=== PATIENT | male | born 1950 | race Caucasian/White ===

== ENCOUNTER 2016-10-29 01:24 | Inpatient (IN) | payer MEDICARE, OTHER ==
[2016-10-29] MEDS ORDERED: ASPIRIN 81 MG CHEW PO STA (01:39)
[2016-10-29] MEDS ORDERED: NITROGLYCERIN OINT 1 INCH/GM PACKET TOPICAL STA (01:39)
--- NOTE | 2016-10-29 01:43 | ED ---
General Adult HPI - General Stated complaint: FAtigue/Chest Pain Time Seen by Provider: 10/29/16 01:25 Source: RN notes reviewed - History of Present Illness Initial comments: This is a 66-year-old male with a past medical history significant for bypass surgery as well as multiple stents. Patient comes into the emergency department today because yesterday morning he was having some significant chest pain with shortness of breath diaphoresis and nausea. Patient states at that time he thought he was going to pass out. Patient took a nitroglycerin and some aspirin and the pain subsided shortly thereafter. Patient states all day long he felt fine this morning at 12:30 woke up with some chest pain and shortness of breath again. Patient states it is a pressure sensation in the left side of his chest since similar to the symptoms he had when he had his bypass surgery. Patient states currently he is feeling better but it's still slightly there at his chest. Patient denies any recent fever chills or cough. Patient denies any abdominal pain. Patient denies any vomiting or diarrhea. Patient denies any headache patient denies any numbness or weakness. - Related Data Allergies Allergy/AdvReac Type Severity Reaction Status Date / Time No Known Allergies Allergy Verified 10/29/16 01:41 Review of Systems ROS Statement: Those systems with pertinent positive or pertinent negative responses have been documented in the HPI. ROS Other: All systems not noted in ROS Statement are negative. General Exam - General Exam Comments Initial Comments: GENERAL: Patient is well-developed and well-nourished. Patient is nontoxic and well- hydrated and is in mild distress. ENT: Neck is soft and supple. No significant lymphadenopathy is noted. Oropharynx is clear. Moist mucous membranes. Neck has full range of motion without eliciting any pain. EYES: The sclera were anicteric and conjunctiva were pink and moist. Extraocular movements were intact and pupils were equal round and reactive to light. Eyelids were unremarkable. PULMONARY: Unlabored respirations. Good breath sounds bilaterally. No audible rales rhonchi or wheezing was noted. CARDIOVASCULAR: There is a regular rate and rhythm without any murmurs gallops or rubs. ABDOMEN: Soft and nontender with normal bowel sounds. No palpable organomegaly was noted. There is no palpable pulsatile mass. SKIN: Skin is clear with no lesions or rashes and otherwise unremarkable. NEUROLOGIC: Patient is alert and oriented x3. Cranial nerves II through XII are grossly intact. Motor and sensory are also intact. Normal speech, volume and content. Symmetrical smile. MUSCULOSKELETAL: Normal extremities with adequate strength and full range of motion. No lower extremity swelling or edema. No calf tenderness. LYMPHATICS: No significant lymphadenopathy is noted PSYCHIATRIC: Normal psychiatric evaluation. Normal interpersonal interactions appears functionally intact in deals appropriately with others. No signs of depression. No signs of anxiety. Course Vital Signs 10/29/16 10/29/16 01:35 03:02 Temperature 97.8 F Pulse Rate 80 73 Respiratory 18 18 Rate Blood Pressure 132/71 112/68 O2 Sat by Pulse 99 96 Oximetry Medical Decision Making - Medical Decision Making EKG shows normal sinus rhythm at 72 bpm TN interval is 202 QRS is 104 QT interval 428 QTC is 468. Patient's EKG shows Q waves in leads 3 and aVF there is no ST segment elevation. Patient has significant cardiac history this along with his clinical symptoms I diagnosed patient with unstable angina I started the patient on heparin I spoke with Dr. Moses agreed to admit the patient admitted the patient I consult cardiology I continued heparin and aspirin and Nitropaste on the floor. Chest x-ray shows no acute abnormality. - Lab Data Result diagrams: 10/29/16 01:50 10/29/16 01:50 Lab Results 10/29/16 10/29/16 10/29/16 Range/Units 01:50 01:50 01:50 WBC 11.9 H (3.8-10.6) k/uL RBC 4.87 (4.30-5.90) m/uL Hgb 13.9 (13.0-17.5) gm/dL Hct 41.5 (39.0-53.0) % MCV 85.2 (80.0-100.0) fL MCH 28.5 (25.0-35.0) pg MCHC 33.4 (31.0-37.0) g/dL RDW 13.3 (11.5-15.5) % Plt Count 209 (150-450) k/uL Neutrophils % 66 % Lymphocytes % 24 % Monocytes % 6 % Eosinophils % 2 % Basophils % 0 % Neutrophils # 7.8 H (1.3-7.7) k/uL Lymphocytes # 2.9 (1.0-4.8) k/uL Monocytes # 0.7 (0-1.0) k/uL Eosinophils # 0.2 (0-0.7) k/uL Basophils # 0.1 (0-0.2) k/uL PT (9.0-12.0) sec INR (<1.1) APTT (22.0-30.0) sec Sodium 142 (137-145) mmol/L Potassium 4.5 (3.5-5.1) mmol/L Chloride 103 (98-107) mmol/L Carbon Dioxide 25 (22-30) mmol/L Anion Gap 14 mmol/L BUN 25 H (9-20) mg/dL Creatinine 0.88 (0.66-1.25) mg/dL Est GFR (MDRD) Af Amer >60 (>60 ml/min/1.73 sqM) Est GFR (MDRD) Non-Af >60 (>60 ml/min/1.73 sqM) Glucose 97 (74-99) mg/dL Calcium 9.3 (8.4-10.2) mg/dL Magnesium 1.7 (1.6-2.3) mg/dL Total Bilirubin 0.6 (0.2-1.3) mg/dL AST 22 (17-59) U/L ALT 30 (21-72) U/L Alkaline Phosphatase 73 (38-126) U/L Total Creatine Kinase 137 (55-170) U/L CK-MB (CK-2) 0.7 (0.0-2.4) ng/mL CK-MB (CK-2) Rel Index 0.5 Troponin I <0.012 (0.000-0.034) ng/mL Total Protein 6.9 (6.3-8.2) g/dL Albumin 4.2 (3.5-5.0) g/dL 10/29/16 Range/Units 01:50 WBC (3.8-10.6) k/uL RBC (4.30-5.90) m/uL Hgb (13.0-17.5) gm/dL Hct (39.0-53.0) % MCV (80.0-100.0) fL MCH (25.0-35.0) pg MCHC (31.0-37.0) g/dL RDW (11.5-15.5) % Plt Count (150-450) k/uL Neutrophils % % Lymphocytes % % Monocytes % % Eosinophils % % Basophils % % Neutrophils # (1.3-7.7) k/uL Lymphocytes # (1.0-4.8) k/uL Monocytes # (0-1.0) k/uL Eosinophils # (0-0.7) k/uL Basophils # (0-0.2) k/uL PT 10.9 (9.0-12.0) sec INR 1.1 (<1.1) APTT 25.0 (22.0-30.0) sec Sodium (137-145) mmol/L Potassium (3.5-5.1) mmol/L Chloride (98-107) mmol/L Carbon Dioxide (22-30) mmol/L Anion Gap mmol/L BUN (9-20) mg/dL Creatinine (0.66-1.25) mg/dL Est GFR (MDRD) Af Amer (>60 ml/min/1.73 sqM) Est GFR (MDRD) Non-Af (>60 ml/min/1.73 sqM) Glucose (74-99) mg/dL Calcium (8.4-10.2) mg/dL Magnesium (1.6-2.3) mg/dL Total Bilirubin (0.2-1.3) mg/dL AST (17-59) U/L ALT (21-72) U/L Alkaline Phosphatase (38-126) U/L Total Creatine Kinase (55-170) U/L CK-MB (CK-2) (0.0-2.4) ng/mL CK-MB (CK-2) Rel Index Troponin I (0.000-0.034) ng/mL Total Protein (6.3-8.2) g/dL Albumin (3.5-5.0) g/dL Critical Care Time Critical Care Time: Yes Total Critical Care Time: 35 Disposition Clinical Impression: Unstable angina pectoris Disposition: ADMITTED IP TO THIS HOSP Referrals: [facility] [REFERRING] - 1-2 days Time of Disposition: 03:03
[2016-10-29 02:00] LABS: Basophils # (A) 0.1 k/uL (0-0.2); Basophils % (A) 0 %; CH 28.7; CHCM 33.8; Eosinophils # (A) 0.2 k/uL (0-0.7); Eosinophils % (A) 2 %; HCT 41.5 % (39.0-53.0); HDW 2.75; HGB 13.9 gm/dL (13.0-17.5); Luc # (Auto) 0.25; Luc % (Auto) 2; Lymphocytes # (A) 2.9 k/uL (1.0-4.8); Lymphocytes % (A) 24 %; MCH 28.5 pg (25.0-35.0); MCHC 33.4 g/dL (31.0-37.0); MCV 85.2 fL (80.0-100.0); Mean Platelet Volume 7.1; Monocytes # (A) 0.7 k/uL (0-1.0); Monocytes % (A) 6 %; Neutrophils # (A) 7.8 k/uL (1.3-7.7); Neutrophils % (A) 66 %; RBC 4.87 m/uL (4.30-5.90); RDW 13.3 % (11.5-15.5); WBC 11.9 k/uL (3.8-10.6)
[2016-10-29 02:05] LABS: INR 1.1 (<1.1); Prothrombin Time 10.9 sec (9.0-12.0)
[2016-10-29 02:08] LABS: ALT 30 U/L (21-72); AST 22 U/L (17-59); Alkaline Phosphatase 73 U/L (38-126); Anion Gap 14 mmol/L; Blood Urea Nitrogen 25 mg/dL (9-20); Calcium 9.3 mg/dL (8.4-10.2); Carbon Dioxide 25 mmol/L (22-30); Chloride 103 mmol/L (98-107); Glucose 97 mg/dL (74-99); Magnesium 1.7 mg/dL (1.6-2.3); Non-African American GFR(MDRD) >60 (>60 ml/min/1.73 sqM); Potassium 4.5 mmol/L (3.5-5.1); Sodium 142 mmol/L (137-145); Total Bilirubin 0.6 mg/dL (0.2-1.3); Total Protein 6.9 g/dL (6.3-8.2)
--- NOTE | 2016-10-29 02:10 | XR ---
EXAM: XR Chest, 2 Views CLINICAL HISTORY: Reason: Chest Pain TECHNIQUE: Frontal and lateral views of the chest. COMPARISON: No relevant prior studies available. FINDINGS: Lungs: Low lung volumes. No consolidation. Pleural space: Unremarkable. No pleural effusions. No pneumothorax. Heart: Unremarkable. No cardiomegaly. Mediastinum: Sternotomy wires and mediastinal clips. Bones/joints: Unremarkable. IMPRESSION: No acute cardiopulmonary process.
[2016-10-29 02:26] LABS: Creatine Kinase 137 U/L (55-170)
[2016-10-29 02:39] LABS: Creatine Kinase MB 0.7 ng/mL (0.0-2.4); Troponin I <0.012 ng/mL (0.000-0.034)
[2016-10-29] MEDS ORDERED: HEPARIN SODIUM,PORCINE 5,000 UNIT/ML 1 ML VIAL IV ONE (03:02)
[2016-10-29] MEDS: HEPARIN SODIUM,PORCINE/D5W PMX 25,000 UNIT in DEXTROSE/WATER 1 500ML.BAG IV SCH (03:20)
[2016-10-29] MEDS ORDERED: NITROGLYCERIN SL TABS 0.4 MG TAB SUBLINGUAL PRN ×2 (04:52→11:21)
[2016-10-29 05:52] VITALS: BMI 28.3
[2016-10-29 06:23] LABS: Glucose,Whole Blood 123 mg/dL (75-99)
[2016-10-29] MEDS: NITROGLYCERIN OINT 1 INCH/GM PACKET TOPICAL SCH ×4 (06:24→23:05)
--- NOTE | 2016-10-29 09:37 | P.CRDCN ---
<Emilie Gerber E - Last Filed: 10/29/16 09:14> History of Present Illness Consult date: 10/29/16 Requesting physician: Peter Cooper Consult reason: chest pain Chief complaint: Chest pain History of present illness: This is a 66-year-old gentleman with known history of coronary artery disease and prior myocardial infarctions, prior bypass surgery and multiple stent placements, diabetes, hypertension, hyperlipidemia, he follows with Dr. Saldivar in the office. He presents to the hospital with symptoms of chest discomfort. According to the patient he was helping a one of his grandchildren get ready for school yesterday morning, he was tying his shoelaces and noticed a discomfort in the left chest area, he states he became nauseated and diaphoretic felt like he may pass out. He took a sublingual nitroglycerin with relief of the symptoms. Again at around 12:30 in the morning the patient states he awoke with discomfort in the chest and just did not feel right, he again took a sublingual nitroglycerin as well as an aspirin. Patient came to the emergency room for further evaluation. Overall the patient states he's been doing fairly well, he has not had any symptoms of angina for quite some time. He also states that he recently underwent a stress test in the office which was reported to be normal. At the time of my examination this morning patient is currently chest pain-free. Blood pressure on arrival here 132/70 with a heart rate in the 80s. White blood cell count 11.9, hemoglobin 13.9, potassium 4.5, BUN 25, creatinine 0.8. Initial troponin 0.012. Magnesium level I.7. EKG shows normal sinus rhythm with lateral ST depression and inferior Q waves. Chest x-ray does not reveal any acute cardiopulmonary process. Past Medical History Past Medical History: Coronary Artery Disease (CAD), Chest Pain / Angina, Diabetes Mellitus, Hypertension, Myocardial Infarction (MS) Last Myocardial Infarction Date:: 2013 History of Any Multi-Drug Resistant Organisms: None Reported Past Surgical History: Coronary Bypass/CABG, Heart Catheterization With Stent Past Anesthesia/Blood Transfusion Reactions: No Reported Reaction Date of Last Stent Placement:: 2013 Past Psychological History: No Psychological Hx Reported Smoking Status: Former smoker Past Alcohol Use History: None Reported Past Drug Use History: None Reported - Past Family History Father Family Medical History: Congestive Heart Failure (CHF) Mother Family Medical History: Congestive Heart Failure (CHF), Myocardial Infarction ( MS) Brother(s) Additional Family Medical History / Comment(s): CABG Medications and Allergies Home Medications Medication Instructions Recorded Confirmed Type Aspirin 325 mg PO DAILY 10/29/16 10/29/16 History Atenolol 25 mg PO DAILY 10/29/16 10/29/16 History Atorvastatin [Lipitor] 40 mg PO HS 10/29/16 10/29/16 History Clopidogrel [Plavix] 75 mg PO DAILY 10/29/16 10/29/16 History Lisinopril [Prinivil] 10 mg PO DAILY 10/29/16 10/29/16 History glipiZIDE [Glipizide] 5 mg PO HS 10/29/16 10/29/16 History metFORMIN HCL [Metformin HCl] 1,000 mg PO BID 10/29/16 10/29/16 History Allergies Allergy/AdvReac Type Severity Reaction Status Date / Time No Known Allergies Allergy Verified 10/29/16 07:31 Physical Exam Vitals: Vital Signs Temp Pulse Pulse Resp BP BP Pulse Ox 10/29/16 07:44 96.1 F L 75 18 111/67 95 10/29/16 05:15 97.7 F 81 18 107/64 96 10/29/16 04:53 97 10/29/16 04:00 80 18 103/65 96 10/29/16 03:02 73 18 112/68 96 10/29/16 01:35 97.8 F 80 18 132/71 99 Intake and Output 10/28/16 10/29/16 10/29/16 22:59 06:59 14:59 Other: # Voids 1 Weight 89.5 kg PHYSICAL EXAMINATION: HEENT: Head is atraumatic, normocephalic. Pupils equal, round. Neck is supple. There is no elevated jugular venous pressure. HEART EXAMINATION: Heart S1, S2 normal. No murmur or gallop heard. CHEST EXAMINATION: Lungs are clear to auscultation and precussion. No chest wall tenderness is noted on palpation or with deep breathing. ABDOMEN: Soft, nontender. Bowel sounds are heard. No organomegaly noted. EXTREMITIES: 2+ peripheral pulses with no evidence of peripheral edema and no calf tenderness noted. NEUROLOGIC patient is awake, alert and oriented -3. . Results 10/29/16 01:50 10/29/16 01:50 Cardiac Enzymes 10/29/16 10/29/16 Range/Units 01:50 01:50 AST 22 (17-59) U/L CK-MB (CK-2) 0.7 (0.0-2.4) ng/mL Troponin I <0.012 (0.000-0.034) ng/mL Coagulation 10/29/16 Range/Units 01:50 PT 10.9 (9.0-12.0) sec APTT 25.0 (22.0-30.0) sec CBC 10/29/16 Range/Units 01:50 WBC 11.9 H (3.8-10.6) k/uL RBC 4.87 (4.30-5.90) m/uL Hgb 13.9 (13.0-17.5) gm/dL Hct 41.5 (39.0-53.0) % Plt Count 209 (150-450) k/uL Comprehensive Metabolic Panel 10/29/16 Range/Units 01:50 Sodium 142 (137-145) mmol/L Potassium 4.5 (3.5-5.1) mmol/L Chloride 103 (98-107) mmol/L Carbon Dioxide 25 (22-30) mmol/L BUN 25 H (9-20) mg/dL Creatinine 0.88 (0.66-1.25) mg/dL Glucose 97 (74-99) mg/dL Calcium 9.3 (8.4-10.2) mg/dL AST 22 (17-59) U/L ALT 30 (21-72) U/L Alkaline Phosphatase 73 (38-126) U/L Total Protein 6.9 (6.3-8.2) g/dL Albumin 4.2 (3.5-5.0) g/dL Current Medications Generic Name Dose Route Start Last Admin Trade Name Freq PRN Reason Stop Dose Admin Aspirin 325 mg 10/30/16 09:00 Aspirin PO DAILY LA Heparin Sodium/Dextrose 25,000 500 mls @ 20.09 mls/hr 10/29/16 03:15 03:20 unit/ IV Solution IV 11.24 units/kg/hr .Q24H LA 20 mls/hr Protocol Administration 11.3 UNITS/KG/HR Nitroglycerin 1 inch 10/29/16 06:00 10/29/16 06:24 Nitro-Bid Oint TOPICAL 1 inch Q6HR LA Administration Nitroglycerin 0.4 mg 10/29/16 04:52 Nitrostat SUBLINGUAL Q5M PRN Chest Pain Intake and Output 10/28/16 10/29/16 10/29/16 22:59 06:59 14:59 Other: # Voids 1 Weight 89.5 kg 10/29/16 01:50 10/29/16 01:50 EKG Interpretations (text) EKG shows normal sinus rhythm with inferior Q waves and ST depression in 1 and aVL. Assessment and Plan Plan: Assessment and plan #1 chest pain, initial troponin negative. EKG shows a normal sinus rhythm with inferior Q waves and lateral ST depression. #2 known history of coronary artery disease with prior myocardial infarctions, bypass surgery and multiple stent placements. #3 ischemic cardiomyopathy with documented ejection fraction of 35% #4 diabetes #5 hyperlipidemia #6 hypertension Plan We will repeat EKG this morning. Obtain echocardiogram with Doppler study. We will also get the report of recent stress test performed in the office. Continue Plavix, heparin drip, lisinopril, and Nitropaste. Decrease aspirin to 81 mg daily. Discontinue atenolol and initiate Coreg. Obtained to further troponins. Further recommendations to follow. DNP note has been reviewed, I agree with a documented findings and plan of care. Patient was seen and examined. <Bartolo Gage - Last Filed: 10/29/16 11:21> Physical Exam Vitals: Vital Signs Temp Pulse Pulse Resp BP BP Pulse Ox 10/29/16 11:09 96.8 F L 73 18 113/67 96 10/29/16 07:44 96.1 F L 75 18 111/67 95 10/29/16 05:15 97.7 F 81 18 107/64 96 10/29/16 04:53 97 10/29/16 04:00 80 18 103/65 96 10/29/16 03:02 73 18 112/68 96 10/29/16 01:35 97.8 F 80 18 132/71 99 Intake and Output 10/28/16 10/29/16 10/29/16 22:59 06:59 14:59 Intake Total 141.667 Balance 141.667 Intake: Intake, IV Titration 141.667 Amount Heparin Sodium,Porcine/ 141.667 D5w Pmx 25,000 unit In Dextrose/Water 1 500ml. bag @ 11.3 UNITS/KG/HR 20 .09 mls/hr IV .Q24H [facility] Rx#:[id number] Other: # Voids 1 2 Weight 89.5 kg Results 10/29/16 01:50 10/29/16 01:50 Cardiac Enzymes 10/29/16 10/29/16 10/29/16 Range/Units 01:50 01:50 08:01 AST 22 (17-59) U/L CK-MB (CK-2) 0.7 0.8 (0.0-2.4) ng/mL Troponin I <0.012 <0.012 (0.000-0.034) ng/mL Coagulation 10/29/16 10/29/16 Range/Units 01:50 09:21 PT 10.9 (9.0-12.0) sec APTT 25.0 35.9 H (22.0-30.0) sec CBC 10/29/16 Range/Units 01:50 WBC 11.9 H (3.8-10.6) k/uL RBC 4.87 (4.30-5.90) m/uL Hgb 13.9 (13.0-17.5) gm/dL Hct 41.5 (39.0-53.0) % Plt Count 209 (150-450) k/uL Comprehensive Metabolic Panel 10/29/16 Range/Units 01:50 Sodium 142 (137-145) mmol/L Potassium 4.5 (3.5-5.1) mmol/L Chloride 103 (98-107) mmol/L Carbon Dioxide 25 (22-30) mmol/L BUN 25 H (9-20) mg/dL Creatinine 0.88 (0.66-1.25) mg/dL Glucose 97 (74-99) mg/dL Calcium 9.3 (8.4-10.2) mg/dL AST 22 (17-59) U/L ALT 30 (21-72) U/L Alkaline Phosphatase 73 (38-126) U/L Total Protein 6.9 (6.3-8.2) g/dL Albumin 4.2 (3.5-5.0) g/dL Current Medications Generic Name Dose Route Start Last Admin Trade Name Freq PRN Reason Stop Dose Admin Aspirin 81 mg 10/30/16 09:00 Aspirin PO DAILY [facility] Atorvastatin Calcium 40 mg 10/29/16 21:00 Lipitor PO HS [facility] Carvedilol 3.125 mg 10/29/16 17:30 Coreg PO BID-W/MEALS [facility] Clopidogrel Bisulfate 75 mg 10/30/16 09:00 Plavix PO DAILY [facility] Glipizide 5 mg 10/29/16 21:00 Glucotrol PO HS [facility] Heparin Sodium (Porcine) 0 unit 10/29/16 10:16 10/29/16 10:24 Heparin IV 4,000 unit PER PROTOCOL PRN Administration Low PTT Protocol Heparin Sodium/Dextrose 25,000 500 mls @ 20.09 mls/hr 10/29/16 03:15 10:25 unit/ IV Solution IV 14.36 units/kg/hr .Q24H LA 25.53 mls/hr Protocol Titration 11.3 UNITS/KG/HR Lisinopril 10 mg 10/30/16 09:00 Zestril PO DAILY [facility] Metformin HCl 1,000 mg 10/29/16 21:00 Glucophage PO BID [facility] Nitroglycerin 1 inch 10/29/16 06:00 10/29/16 11:08 Nitro-Bid Oint TOPICAL 1 inch Q6HR [facility] Administration Nitroglycerin 0.4 mg 10/29/16 04:52 Nitrostat SUBLINGUAL Q5M PRN Chest Pain Intake and Output 10/28/16 10/29/16 10/29/16 22:59 06:59 14:59 Intake Total 141.667 Balance 141.667 Intake: Intake, IV Titration 141.667 Amount Heparin Sodium,Porcine/ 141.667 D5w Pmx 25,000 unit In Dextrose/Water 1 500ml. bag @ 11.3 UNITS/KG/HR 20 .09 mls/hr IV .Q24H [facility] Rx#:[id number] Other: # Voids 1 2 Weight 89.5 kg 10/29/16 01:50 10/29/16 01:50
[2016-10-29 10:11] LABS: Creatine Kinase 132 U/L (55-170)
[2016-10-29] MEDS ORDERED: HEPARIN SODIUM,PORCINE 5,000 UNIT/ML 1 ML VIAL IV PRN (10:16)
[2016-10-29 10:23] LABS: Creatine Kinase MB 0.8 ng/mL (0.0-2.4); Troponin I <0.012 ng/mL (0.000-0.034)
[2016-10-29] MEDS ORDERED: SODIUM CHLORIDE 0.9% 1,000 ML in EMPTY BAG 1 BAG IV ONE (11:21)
[2016-10-29] MEDS ORDERED: ALPRAZolam 0.25 MG TAB PO PRN (11:21)
[2016-10-29] MEDS ORDERED: ALPRAZolam 0.5 MG TAB PO PRN (11:21)
[2016-10-29 11:30] LABS: Glucose,Whole Blood 123 mg/dL (75-99)
[2016-10-29 13:33] LABS: Anion Gap 13 mmol/L; Blood Urea Nitrogen 23 mg/dL (9-20); Calcium 9.2 mg/dL (8.4-10.2); Carbon Dioxide 24 mmol/L (22-30); Chloride 103 mmol/L (98-107); Glucose 121 mg/dL (74-99); Non-African American GFR(MDRD) >60 (>60 ml/min/1.73 sqM); Potassium 4.4 mmol/L (3.5-5.1); Sodium 140 mmol/L (137-145)
[2016-10-29 14:20] LABS: Creatine Kinase 119 U/L (55-170)
[2016-10-29 14:33] LABS: Creatine Kinase MB 0.6 ng/mL (0.0-2.4); Troponin I <0.012 ng/mL (0.000-0.034)
[2016-10-29 15:27] LABS: CH 28.3; CHCM 32.4; HCT 39.9 % (39.0-53.0); HDW 2.67; HGB 13.6 gm/dL (13.0-17.5); MCH 29.9 pg (25.0-35.0); MCHC 34.1 g/dL (31.0-37.0); MCV 87.6 fL (80.0-100.0); Mean Platelet Volume 8.4; RBC 4.56 m/uL (4.30-5.90); RDW 13.2 % (11.5-15.5); WBC 7.6 k/uL (3.8-10.6)
--- NOTE | 2016-10-29 16:16 | HP ---
DATE OF ADMISSION: 10/29/2016 PRESENTING COMPLAINT: Chest pain. HISTORY OF PRESENTING COMPLAINT: This is a very pleasant 66-year-old patient who follows with [employer] architect Dr. Kristi Saldivar. Patient has had 11 stents in the past, last one being in 2013. The patient's chronic stable medical conditions include diabetes, hypertension, hyperlipidemia. Patient had an episode yesterday when he developed chest pressure with sweating, nausea, near-syncope. He took a nitroglycerin, which helped, and he went back to sleep. When patient woke up his sugar was a bit low, and again he was having some chest pressure and decided to come in. His brought him in. Patient's troponins have been negative. Patient is pretty active around the house otherwise, normally with no cardiac symptoms. REVIEW OF SYSTEMS: CONSTITUTIONAL: None. HEENT: None. RESPIRATORY: None. CARDIOVASCULAR: As above. GASTROINTESTINAL: None. GENITOURINARY: None. MUSCULOSKELETAL: None. DERMATOLOGIC: None. HEMATOLOGIC: None. LYMPHATICS: None. PSYCHIATRY: None. NEUROLOGICAL: None. PAST HISTORY: 1. Coronary artery disease with stents. 2. Diabetes. 3. Hypertension. 4. Hyperlipidemia. PAST SURGICAL HISTORY: 1. Coronary artery bypass. 2. Cardiac catheterization with multiple stents, the last in 2013. SOCIAL HISTORY: Patient is . Did smoke in the past. 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 FAMILY HISTORY: Coronary artery bypass. HOME MEDICATIONS: 1. Metformin 1000 mg b.i.d. 2. Glipizide 5 mg p.o. at bedtime. 3. Prinivil 10 mg p.o. daily. 4. Plavix 75 mg p.o. daily. 5. Lipitor 40 mg at bedtime. 6. Atenolol 25 mg p.o. daily. 7. Aspirin 325 mg p.o. daily. ALLERGIES: NONE. PHYSICAL EXAMINATION: VITAL SIGNS ON PRESENTATION: Temperature 97.8, pulse 80, respiration 18, blood pressure 132/71, pulse ox 99% on room air. GENERAL APPEARANCE: Average build. Lying in bed. Comfortable. EYES: Pupils equal. Conjunctivae normal. HEENT: Oral cavity normal. NECK: JVD not raised. Mass not palpable. RESPIRATORY: Effort normal. Lungs are clear. CARDIOVASCULAR: First and second sounds normal. No edema. ABDOMEN: Soft, non-tender. Liver and spleen not palpable. LYMPHATIC: No lymph node palpable in neck or axillae. PSYCHIATRY: Alert and oriented x3. Mood and affect normal. NEUROLOGICAL: Pupils equal. Cranial nerves grossly intact. Power and sensation grossly intact. INVESTIGATIONS: White count 11.9, hemoglobin 13.9. Potassium 4.5. Troponin x2 is negative. EKG shows normal sinus rhythm, non-specific changes in the inferior leads. ASSESSMENT: 1. Unstable angina in a patient with known coronary artery disease who has gotten multiple stents in the past. 2. Diabetes mellitus, type 2, on oral hypoglycemic. 3. Essential hypertension. 4. Hyperlipidemia. 5. Intravenous heparin monitoring. PLAN: Cardiology was consulted. They are contemplating a cardiac catheterization tomorrow. Home medications are resumed. Accu-Cheks will be followed. Care was discussed with the patient and his at the bedside.
[2016-10-29 16:48] LABS: Glucose,Whole Blood 210 mg/dL (75-99)
[2016-10-29] MEDS: INSULIN LISPRO (humaLOG) 300 UNIT/3 ML VIAL SQ SCH ×2 (17:31→20:45)
[2016-10-29] MEDS: CARVEDILOL 3.125 MG TAB PO SCH (17:32)
[2016-10-29 20:44] LABS: Glucose,Whole Blood 116 mg/dL (75-99)
[2016-10-29] MEDS: metFORMIN 500 MG TAB PO SCH (20:46)
[2016-10-29] MEDS ORDERED: ATORVASTATIN 40 MG TAB PO SCH (21:00)
[2016-10-29] MEDS ORDERED: glipiZIDE 5 MG TAB PO SCH (21:00)
[2016-10-30 00:27] LABS: Hemoglobin A1C 5.8 % (4.2-6.1)
[2016-10-30] MEDS: HEPARIN SODIUM,PORCINE/D5W PMX 25,000 UNIT in DEXTROSE/WATER 1 500ML.BAG IV SCH (01:46)
[2016-10-30 06:18] LABS: Glucose,Whole Blood 153 mg/dL (75-99)
[2016-10-30] MEDS: NITROGLYCERIN OINT 1 INCH/GM PACKET TOPICAL SCH (06:29)
[2016-10-30] MEDS: CARVEDILOL 3.125 MG TAB PO SCH (06:29)
[2016-10-30] MEDS: INSULIN LISPRO (humaLOG) 300 UNIT/3 ML VIAL SQ SCH ×2 (06:33→12:06)
[2016-10-30] MEDS ORDERED: IV FLUID CONTINUATION 1,000 ML IV ONE (07:20)
[2016-10-30] MEDS ORDERED: ASPIRIN 325 MG TAB ONE (07:21)
[2016-10-30] MEDS: metFORMIN 500 MG TAB PO SCH (07:27)
[2016-10-30] MEDS ORDERED: ASPIRIN 325 MG TAB PO ONE (07:27)
[2016-10-30] MEDS ORDERED: MIDAZOLAM 2 MG/2 ML VIAL ONE (07:29)
[2016-10-30] MEDS ORDERED: fentaNYL (PF) 50 MCG/ML 2 ML AMP ONE (07:29)
[2016-10-30] MEDS ORDERED: fentaNYL (PF) 50 MCG/ML 2 ML AMP IV ONE (07:30)
[2016-10-30] MEDS ORDERED: MIDAZOLAM 2 MG/2 ML VIAL IV ONE (07:31)
[2016-10-30] MEDS ORDERED: LIDOCAINE 2% INJ 20 MG/ML SQ ONE (07:36)
[2016-10-30 07:51] LABS: Cholesterol 103 mg/dL (<200); HDL Cholesterol 24 mg/dL (40-60); Triglycerides 184 mg/dL (<150)
[2016-10-30] MEDS ORDERED: RX INFO: IV CONTRAST WAS GIVEN 1 EACH MISC MISCELLANE PRN (08:20)
[2016-10-30] MEDS ORDERED: IOHEXOL 350 MG/ML 125ML BOTTLE INJ ONE (08:28)
[2016-10-30] MEDS ORDERED: SODIUM CHLORIDE 0.9% 1,000 ML IV SCH (08:30)
[2016-10-30 08:47] LABS: Basophils % (A) 1 %; CH 28.2; CHCM 32.7; Eosinophils # (A) 0.2 k/uL (0-0.7); Eosinophils % (A) 3 %; HCT 36.7 % (39.0-53.0); HDW 2.72; HGB 12.2 gm/dL (13.0-17.5); Luc # (Auto) 0.11; Luc % (Auto) 2; Lymphocytes # (A) 1.4 k/uL (1.0-4.8); Lymphocytes % (A) 26 %; MCH 28.9 pg (25.0-35.0); MCHC 33.2 g/dL (31.0-37.0); MCV 86.9 fL (80.0-100.0); Mean Platelet Volume 7.1; Monocytes # (A) 0.4 k/uL (0-1.0); Monocytes % (A) 7 %; Neutrophils # (A) 3.4 k/uL (1.3-7.7); Neutrophils % (A) 62 %; RBC 4.22 m/uL (4.30-5.90); RDW 13.3 % (11.5-15.5); WBC 5.5 k/uL (3.8-10.6); WBC (Perox) 5.87
[2016-10-30 08:54] LABS: Anion Gap 8 mmol/L; Blood Urea Nitrogen 17 mg/dL (9-20); Calcium 8.8 mg/dL (8.4-10.2); Carbon Dioxide 26 mmol/L (22-30); Chloride 108 mmol/L (98-107); Glucose 137 mg/dL (74-99); Non-African American GFR(MDRD) >60 (>60 ml/min/1.73 sqM); Potassium 4.3 mmol/L (3.5-5.1); Sodium 142 mmol/L (137-145)
[2016-10-30] MEDS ORDERED: ISOSORBIDE MONONITRATE ER 30 MG TAB.ER.24H PO SCH (09:00)
[2016-10-30] MEDS ORDERED: ATENOLOL 25 MG TAB PO SCH (09:00)
[2016-10-30] MEDS ORDERED: ASPIRIN 81 MG CHEW PO SCH (09:00)
[2016-10-30] MEDS ORDERED: CLOPIDOGREL 75 MG TAB PO SCH (09:00)
[2016-10-30] MEDS ORDERED: LISINOPRIL 10 MG TAB PO SCH (09:00)
[2016-10-30] MEDS ORDERED: ASPIRIN 325 MG TAB PO SCH ×2 (09:00)
--- NOTE | 2016-10-30 09:15 | CC ---
DATE OF SERVICE: INDICATION: Unstable angina. This is a 66-year-old gentleman with history of [place] 3-vessel coronary artery disease, status post SAMANIEGO to LAD, venous graft to OM and circumflex, who has had multiple prior angioplasties of the venous graft to the PLV branch comes in with unstable angina. At his last catheterization, one of his venous grafts was already occluded. PROCEDURE NOTE: After obtaining informed consent, left heart catheterization and coronary angiogram, selective injection of the bypass grafts and aortogram were performed via the right femoral artery using standard Vikram catheters. A left bypass graft catheter was used, but the SAMANIEGO was engaged using the right Vikram and the bypass grafts were located using the right Vikram. Aortogram was performed primarily to see if we are missing any grafts. Patient tolerated the procedure well without any obvious immediate complications. A femoral angiogram was performed and Angio-Seal will be deployed for hemostasis. Total sedation time was 30 minutes. FINDINGS: 1. HEMODYNAMICS: Left ventricular end-diastolic pressure is 12 mm. There is no significant gradient across the aortic valve. 2. LEFT VENTRICULOGRAM: Left ventriculogram was not performed. 3. ANGIOGRAPHIC DATA: [place] coronary arteries: Left main coronary artery is a normal-sized vessel and is free of stenosis. It divides into left anterior descending coronary artery and circumflex coronary artery. Circumflex coronary artery is totally occluded in its proximal part. LAD shows a moderate atherosclerotic plaque in the diagonal branch. In the proximal LAD, there is 100% stenosis. The right coronary artery is totally occluded. There are extensive collaterals from the left to right. Selective injection of the bypass grafts: SAMANIEGO to LAD is patent, both the proximal and distal anastomotic sites and the body of the graft are free of disease. [place] LAD itself appears free of significant disease in the distal bed. Venous graft to the PLV appears completely occluded. Venous graft to the circumflex coronary artery appears occluded. An aortogram was performed. It does not show any patent venous grafts and the ascending aorta shows aneurysmal dilatation. CONCLUSIONS: 1. [place] 3 vessel coronary artery disease. 2. Patent left internal mammary artery to left anterior descending artery. 3. Occluded venous grafts to OM and circumflex. PLAN: We will review the angiographic data with the on-call motor rebuilder, but the plan at this stage is to treat him with optimal medical therapy. We should be able to discharge him home later this afternoon and I will optimize his therapies in the outpatient setting.
[2016-10-30] MEDS ORDERED: NITROGLYCERIN 0.4MG/HR PATCH TRANSDERM SCH (09:45)
[2016-10-30 09:57] VITALS: RESP 18
[2016-10-30 11:14] VITALS: TEMP 97
[2016-10-30 11:57] LABS: Glucose,Whole Blood 211 mg/dL (75-99)
[2016-10-30 12:04] VITALS: BP 111/62; PULSE 68
--- NOTE | 2016-10-31 09:13 | DS ---
DATE OF ADMISSION: 10/29/2016 DATE OF DISCHARGE: 10/30/2016 FINAL DIAGNOSES: 1. Unstable angina in a patient with known coronary artery disease who was gotten multiple stents in the past, status post heart catheterization. 2. Diabetes mellitus type 2, on oral hypoglycemics. 3. Essential hypertension. 4. Hyperlipidemia. Consultations with [facility]. HOSPITAL COURSE: This is a patient who presented with chest pressure, sweating, nausea, near syncope. Patient's labs were drawn. Troponins were negative. EKG was done. Cardiology was consulted. Arrangements were made to take the patient to the Catheterization Lab. Patient had a heart cath today. Patient has known triple-vessel coronary artery disease and has had previous grafts placed; however, on this heart catheterization, patient will receive optimal medical therapy and this will be done in an outpatient setting. Patient was recovered from his procedure. Able to eat his meal. Able to ambulate without any difficulty. Right groin site tender to palpation, but otherwise hemostasis has been achieved. Patient has good circulation to his extremity. Therefore, patient is ready for discharge. On examination, CARDIOVASCULAR: First and second sounds are noted. No chest pain or pressure. No edema noted. LUNGS: Breath sounds clear to auscultation bilaterally. Right groin site tender to palpation. Hemostasis achieved. No bleeding noted. DISCHARGE MEDICATIONS: 1. Lipitor 40 mg p.o. at bedtime. 2. Plavix 75 mg p.o. daily. 3. Lisinopril 10 mg p.o. daily. 4. Glipizide 5 mg p.o. at bedtime. 5. Metformin 1000 mg p.o. b.i.d. 6. Aspirin 81 mg p.o. b.i.d. 7. Coreg 3.125 mg p.o. b.i.d. with meals. 8. Nitroglycerin 0.4 mg/h patch q.24 hours. 9. Nitroglycerin sublingual tabs 0.4 mg sublingual every 5 minutes p.r.n. Follow up with Yas Hu, nurse practitioner on 11/06/[address] Saldivar on 11/11/2016. DISCHARGE TIME: More than 35 minutes spent including discussion. Patient was seen and examined by nurse practitioner, Jaimee Brumfield, and all elements of the case discussed with the attending, Dr. Cooper.
--- NOTE | 2016-10-31 16:11 | ECHOF ---
Referral Reason:chest pain MEASUREMENTS -------- HEIGHT: 180.3 cm WEIGHT: 89.4 kg BP: 118/75 IVSd: 0.9 cm (0.6 - 1.1) LVIDd: 4.6 cm (3.9 - 5.3) LVPWd: 1.0 cm (0.6 - 1.1) IVSs: 1.6 cm LVIDs: 2.4 cm LVPWs: 1.8 cm Ao Diam: 3.4 cm (2.0 - 3.7) AV Cusp: 2.3 cm (1.5 - 2.6) LA Diam: 3.9 cm (2.7 - 3.8) MV EXCURSION: 14.230 mm (> 18.000) MV EF SLOPE: 51 mm/s (70 - 150) EPSS: 1.4 cm MV E [place]: 0.69 m/s MV DecT: 184 ms MV A [place]: 0.82 m/s MV E/A Ratio: 0.84 RAP: 5.00 mmHg RVSP: 9.27 mmHg FINDINGS -------- Sinus rhythm. This was a technically difficult study with suboptimal views. Left ventricular wall thickness is normal. Overall left ventricular systolic function is mildly impaired with, an EF between 45 - 50 %. The right ventricle is normal in size and function. The left atrium is normal in size. The right atrium is normal in size. 1.5mg of Definity was utilized for enhancement of images The aortic valve is trileaflet, and appears structurally normal. No aortic stenosis or regurgitation. The mitral valve leaflets are mildly thickened. There is trace mitral regurgitation. Trace tricuspid regurgitation present. The right ventricular systolic pressure, as measured by Doppler, is 9.27mmHg. Pulmonic valve appears structurally normal. The aortic root size is normal. The pericardium is normal. CONCLUSIONS -------- 1. Sinus rhythm. 2. The mitral valve leaflets are mildly thickened. 3. There is trace mitral regurgitation. 4. Trace tricuspid regurgitation present. 5. The right ventricular systolic pressure, as measured by Doppler, is 9.27mmHg. 6. Pulmonic valve appears structurally normal. 7. The aortic root size is normal. 8. The pericardium is normal. 9. This was a technically difficult study with suboptimal views. 10. Left ventricular wall thickness is normal. 11. Overall left ventricular systolic function is mildly impaired with, an EF between 45 - 50 %. 12. The right ventricle is normal in size and function. 13. The left atrium is normal in size. 14. The right atrium is normal in size. 15. 1.5mg of Definity was utilized for enhancement of images 16. The aortic valve is trileaflet, and appears structurally normal. No aortic stenosis or regurgitation. FLUME TENDER: Elisa Arellano RDCS
--- NOTE | 2016-11-01 06:31 | DS ---
DATE OF ADMISSION: 10/29/2016 DATE OF DISCHARGE: 10/30/2016 ATTENDING NOTE: This patient was seen and examined by me on 10/30/16. I reviewed the discharge summary of my nurse practitioner, Ms. Brumfield. Agreed and discussed with the same. This is a patient who presented with chest pain. Cardiac catheterization revealed no new lesions. Spoke to Dr. Kristi Saldivar. Continue current medications. Patient to get a nitro patch. Care was discussed with the patient. On exam, lungs are clear. CARDIOVASCULAR: First and second sounds normal. Discharge medications and plans are detailed in my nurse practitioner notes.
== END 2016-10-30 16:17 | disposition home or self-care (01) | DRG 287 ==
LOC: EC 01:24 → 6SEL 04:53
PROVIDERS: ADMIT Hospitalist; ATTEND Hospitalist
PROC: B2181ZZ Fluoroscopy of Left Internal Mammary Bypass Graft using Low Osmolar Contrast (ICD-10-PCS; 2016-10-30)
PROC: B2151ZZ Fluoroscopy of Left Heart using Low Osmolar Contrast (ICD-10-PCS; 2016-10-30)
PROC: B3101ZZ Fluoroscopy of Thoracic Aorta using Low Osmolar Contrast (ICD-10-PCS; 2016-10-30)
PROC: B2111ZZ Fluoroscopy of Multiple Coronary Arteries using Low Osmolar Contrast (ICD-10-PCS; 2016-10-30)
PROC: B2131ZZ Fluoroscopy of Multiple Coronary Artery Bypass Grafts using Low Osmolar Contrast (ICD-10-PCS; 2016-10-30)
PROC: 4A023N7 Measurement of Cardiac Sampling and Pressure, Left Heart, Percutaneous Approach (ICD-10-PCS; principal; 2016-10-30 07:30)
DX: I25.710 Atherosclerosis of autologous vein coronary artery bypass graft(s) with unstable angina pectoris (principal); I10 Essential (primary) hypertension; E11.9 Type 2 diabetes mellitus without complications; I25.2 Old myocardial infarction; I25.5 Ischemic cardiomyopathy; E78.5 Hyperlipidemia, unspecified; Z95.1 Presence of aortocoronary bypass graft; Z79.84 Long term (current) use of oral hypoglycemic drugs; Z95.5 Presence of coronary angioplasty implant and graft; Z79.82 Long term (current) use of aspirin; Z79.02 Long term (current) use of antithrombotics/antiplatelets; Z79.899 Other long term (current) drug therapy; Z87.891 Personal history of nicotine dependence; Z82.49 Family history of ischemic heart disease and other diseases of the circulatory system
CPT/HCPCS: 36415; 71020; 80048; 80053; 80061; 82550; 82553; 83036; 83735; 84484; 85025; 85027; 85610; 85730; 93005; 93306; 93459; 94760

== ENCOUNTER 2019-03-23 16:19 | Emergency (ER) | payer MEDICARE, OTHER ==
[2019-03-23 18:36] LABS: Basophils # (A) 0.1 k/uL (0-0.2); Basophils % (A) 1 %; Eosinophils # (A) 0.3 k/uL (0-0.7); Eosinophils % (A) 3 %; HCT 39.9 % (39.0-53.0); HGB 13.9 gm/dL (13.0-17.5); Lymphocytes # (A) 2.6 k/uL (1.0-4.8); Lymphocytes % (A) 30 %; MCH 29.2 pg (25.0-35.0); MCHC 34.7 g/dL (31.0-37.0); MCV 84.1 fL (80.0-100.0); Mean Platelet Volume 6.4; Monocytes # (A) 0.6 k/uL (0-1.0); Monocytes % (A) 7 %; Neutrophils # (A) 4.9 k/uL (1.3-7.7); Neutrophils % (A) 57 %; Platelet Count 278 k/uL (150-450); RBC 4.74 m/uL (4.30-5.90); RDW 13.1 % (11.5-15.5); WBC 8.7 k/uL (3.8-10.6)
[2019-03-23 18:53] LABS: ALT 31 U/L (21-72); AST 23 U/L (17-59); African American GFR (CKD) >90 (>60 ml/min/1.73 sqM); Albumin 4.3 g/dL (3.5-5.0); Alkaline Phosphatase 105 U/L (38-126); Anion Gap 11 mmol/L; Blood Urea Nitrogen 20 mg/dL (9-20); Calcium 10.1 mg/dL (8.4-10.2); Carbon Dioxide 28 mmol/L (22-30); Chloride 98 mmol/L (98-107); Glucose 244 mg/dL (74-99); Sodium 137 mmol/L (137-145); Total Bilirubin 0.4 mg/dL (0.2-1.3)
--- NOTE | 2019-03-23 19:55 | ED ---
General Adult HPI - General Chief complaint: Abdominal Pain Stated complaint: Poss bleeding ulcer Time Seen by Provider: 03/23/19 17:25 Source: patient Mode of arrival: ambulatory Limitations: no limitations - History of Present Illness Initial comments: [facility] comes to [facility], sent in by his doctor because he had dark stool. He had some upset stomach earlier this week and took a lot of Pepto-Bismol. He states that his stool was very dark. He denies any chest or belly or back pain. He has no nausea or vomiting. He has no diarrhea. He has no focal weakness. He has no lightheadedness or dizziness. He is tolerating oral intake. - Related Data Home Medications Medication Instructions Recorded Confirmed Atorvastatin [Lipitor] 40 mg PO HS 10/29/16 03/23/19 Lisinopril [Prinivil] 10 mg PO DAILY 10/29/16 03/23/19 metFORMIN HCL [Metformin HCl] 1,000 mg PO BID 10/29/16 03/23/19 Aspirin 81 mg PO DAILY 03/23/19 03/23/19 Furosemide [Lasix] 40 mg PO DAILY 03/23/19 03/23/19 glipiZIDE XL [Glucotrol Xl] 5 mg PO DAILY 03/23/19 03/23/19 Previous Rx's Medication Instructions Recorded Carvedilol [Coreg] 3.125 mg PO BID-W/MEALS #60 tab 10/30/16 Allergies Allergy/AdvReac Type Severity Reaction Status Date / Time No Known Allergies Allergy Verified 03/23/19 17:55 Review of Systems ROS Statement: Those systems with pertinent positive or pertinent negative responses have been documented in the HPI. ROS Other: All systems not noted in ROS Statement are negative. Past Medical History Past Medical History: Coronary Artery Disease (CAD), Chest Pain / Angina, Diabetes Mellitus, Hypertension, Myocardial Infarction ([place]) Last Myocardial Infarction Date:: 2013 History of Any Multi-Drug Resistant Organisms: None Reported Past Surgical History: Coronary Bypass/CABG, Heart Catheterization With Stent Past Anesthesia/Blood Transfusion Reactions: No Reported Reaction Date of Last Stent Placement:: 2013 Past Psychological History: No Psychological Hx Reported Smoking Status: Former smoker Past Alcohol Use History: None Reported Past Drug Use History: None Reported - Past Family History Father Family Medical History: Congestive Heart Failure (CHF) Mother Family Medical History: Congestive Heart Failure (CHF), Myocardial Infarction ([place]) Brother(s) Additional Family Medical History / Comment(s): CABG General Exam Limitations: no limitations General appearance: alert, in no apparent distress Head exam: Present: atraumatic, normocephalic, normal inspection Eye exam: Present: normal appearance, PERRL, EOMI. Absent: scleral icterus, conjunctival injection, periorbital swelling ENT exam: Present: normal exam, mucous membranes moist Neck exam: Present: normal inspection. Absent: tenderness, meningismus, lymphadenopathy Respiratory exam: Present: normal lung sounds bilaterally. Absent: respiratory distress, wheezes, rales, rhonchi, stridor Cardiovascular Exam: Present: regular rate, normal rhythm, normal heart sounds. Absent: systolic murmur, diastolic murmur, rubs, gallop, clicks GI/Abdominal exam: Present: soft, normal bowel sounds. Absent: distended, tenderness, guarding, rebound, rigid Extremities exam: Present: normal inspection, full ROM, normal capillary refill. Absent: tenderness, pedal edema, joint swelling, calf tenderness Back exam: Present: normal inspection Neurological exam: Present: alert, oriented X3, CN II-XII intact Psychiatric exam: Present: normal affect, normal mood Skin exam: Present: warm, dry, intact, normal color. Absent: rash Course Vital Signs 03/23/19 03/23/19 16:25 18:28 Temperature 98.1 F Pulse Rate 87 80 Respiratory 18 20 Rate Blood Pressure 143/81 118/70 O2 Sat by Pulse 96 99 Oximetry EKG Findings - EKG Comments: EKG Findings:: Twelve-lead EKG shows ventricular rate 76 bpm, normal OR interval and QRS complexes, no ST elevation or depression, interpreted by me as normal sinus rhythm. Medical Decision Making - Medical Decision Making Patient presents with dark stool. His physical exam is entirely benign. His laboratory studies are all normal. He has no evidence of a GI bleed this time. He does not require admission to hospital. He can tolerate oral intake. He is stable for discharge. - Lab Data Result diagrams: 03/23/19 17:47 03/23/19 17:47 Lab Results 03/23/19 03/23/19 03/23/19 Range/Units 17:47 17:47 17:47 WBC 8.7 (3.8-10.6) k/uL RBC 4.74 (4.30-5.90) m/uL Hgb 13.9 (13.0-17.5) gm/dL Hct 39.9 (39.0-53.0) % MCV 84.1 (80.0-100.0) fL MCH 29.2 (25.0-35.0) pg MCHC 34.7 (31.0-37.0) g/dL RDW 13.1 (11.5-15.5) % Plt Count 278 (150-450) k/uL Neutrophils % 57 % Lymphocytes % 30 % Monocytes % 7 % Eosinophils % 3 % Basophils % 1 % Neutrophils # 4.9 (1.3-7.7) k/uL Lymphocytes # 2.6 (1.0-4.8) k/uL Monocytes # 0.6 (0-1.0) k/uL Eosinophils # 0.3 (0-0.7) k/uL Basophils # 0.1 (0-0.2) k/uL Sodium 137 (137-145) mmol/L Potassium 4.0 (3.5-5.1) mmol/L Chloride 98 (98-107) mmol/L Carbon Dioxide 28 (22-30) mmol/L Anion Gap 11 mmol/L BUN 20 (9-20) mg/dL Creatinine 0.67 (0.66-1.25) mg/dL Est GFR (CKD-EPI)AfAm >90 (>60 ml/min/1.73 sqM) Est GFR (CKD-EPI)NonAf >90 (>60 ml/min/1.73 sqM) Glucose 244 H (74-99) mg/dL Calcium 10.1 (8.4-10.2) mg/dL Total Bilirubin 0.4 (0.2-1.3) mg/dL AST 23 (17-59) U/L ALT 31 (21-72) U/L Alkaline Phosphatase 105 (38-126) U/L Troponin I <0.012 (0.000-0.034) ng/mL Total Protein 7.0 (6.3-8.2) g/dL Albumin 4.3 (3.5-5.0) g/dL Lipase 119 (23-300) U/L Disposition Clinical Impression: Abdominal pain Disposition: HOME SELF-CARE Condition: Good Instructions (If sedation given, give patient instructions): Abdominal Pain (ED) Is patient prescribed a controlled substance at d/c from ED?: No Referrals: Matt Marquez MD [Primary Care Provider] - 1-2 days
[2019-03-23 20:12] VITALS: BP 125/81; PULSE 95; RESP 18; TEMP 98.2
== END 2019-03-23 20:05 | disposition home or self-care (01) ==
LOC: EC 16:19
DX: R10.9 Unspecified abdominal pain (principal); I25.119 Atherosclerotic heart disease of native coronary artery with unspecified angina pectoris; E11.9 Type 2 diabetes mellitus without complications; I10 Essential (primary) hypertension; I25.2 Old myocardial infarction; Z79.84 Long term (current) use of oral hypoglycemic drugs; Z79.82 Long term (current) use of aspirin; Z79.899 Other long term (current) drug therapy; Z87.891 Personal history of nicotine dependence; Z95.1 Presence of aortocoronary bypass graft
CPT/HCPCS: 36415; 80053; 83690; 84484; 85025; 93005; 99284

== ENCOUNTER → 2019-05-13 | Outpatient (CLI) | payer MEDICARE ==
[2019-05-13 16:54] LABS: Chol/HDL Ratio 4.76; LDL Cholesterol,Calculated 55.4 mg/dL (0.0-131.0); VLDL Calculation 53.6 mg/dL (5.00-40.00)
== END | disposition home or self-care (01) ==
LOC: LABWHC1 09:04
PROVIDERS: ATTEND Internal Medicine Cardiovascular Disease
DX: E78.2 Mixed hyperlipidemia (principal)
CPT/HCPCS: 36415; 80061; 84450; 84460

== ENCOUNTER → 2024-09-15 | Outpatient (CLI) | payer MEDICARE ==
[2024-09-15 10:25] LABS: Basophils # (A) 0.03 X 10*3/uL (0.00-0.10); Basophils % (A) 0.4 %; Eosinophils # (A) 0.18 X 10*3/uL (0.04-0.35); Eosinophils % (A) 2.6 %; HCT 44.1 % (39.6-50.0); HGB 14.4 g/dL (13.0-17.0); Lymphocytes # (A) 2.26 X 10*3/uL (0.90-5.00); Lymphocytes % (A) 33.1 %; MCH 27.7 pg (27.0-32.0); MCHC 32.7 g/dL (32.0-37.0); Mean Platelet Volume 10.4 FL (9.5-12.2); Monocytes % (A) 10.2 %; NRBC Per 100 WBC 0 X 10*3/uL (0.00-0.01); Neutrophils # (A) 3.63 X 10*3/uL (1.80-7.70); Neutrophils % (A) 53.3 %; Platelet Count 292 X 10*3/uL (140-440); RBC 5.19 X 10*6/uL (4.40-5.60); RDW 13.3 % (11.5-14.5); WBC 6.83 X 10*3/uL (4.50-10.00)
[2024-09-15 10:31] LABS: ALT 18 U/L (10-49); AST 18 U/L (14-35); BUN/Creat Ratio 18.64 Ratio (12.00-20.00); Blood Urea Nitrogen 20.5 mg/dL (9.0-27.0); Calcium 9.7 mg/dL (8.7-10.3); Carbon Dioxide 31.7 mmol/L (21.6-31.8); Chloride 98 mmol/L (96-109); Chol/HDL Ratio 7.22 Ratio; Glucose 153 mg/dL (70-110); LDL Cholesterol,Calculated 135.1 mg/dL (0.0-131.0); Potassium 4.8 mmol/L (3.5-5.5); Sodium 135 mmol/L (135-145)
== END | disposition home or self-care (01) ==
LOC: LABWHC1 07:21
PROVIDERS: ATTEND Family Medicine
DX: I10 Essential (primary) hypertension (principal); E11.65 Type 2 diabetes mellitus with hyperglycemia; E78.5 Hyperlipidemia, unspecified
CPT/HCPCS: 36415; 80048; 80061; 83036; 84450; 84460; 85025